=== PATIENT | male | born 1950 | race Two or more races ===

== ENCOUNTER → 2016-06-21 | Day surgery (SDC) | payer OTHER ==
[2016-06-18 13:00] LABS: Urine RBC None Seen /hpf (0 - 3)
[2016-06-18 13:11] LABS: Basophils # (auto) 0 uL; Basophils % (auto) 0.4 % (0.0-2.0); Eosinophils # (auto) 0.1 uL; Eosinophils % (auto) 1.8 % (0.0-7.0); Hemoglobin 14.7 g/dL (13.5-17.5); Lymphocytes # (auto) 2.6 uL; Lymphocytes % (auto) 30.5 % (10.0-50.0); Mean Corpuscular Hemoglobin 30.8 pg (28.0-32.0); Mean Corpuscular Hgb Conc. 33.5 g/dL (32.0-36.0); Mean Corpuscular Volume 92.2 fL (80.0-100.0); Mean Platelet Volume 8.1 fL (7.4-10.4); Monocytes # (auto) 0.8 uL; Monocytes % (auto) 9.3 % (0.0-12.0); Neutrophils # (auto) 4.9 uL; Platelet Count (auto) 231 10^3/uL (140-450); Red Cell Distribution Width 12.9 % (11.6-16.0); White Blood Cell 8.4 10^3/uL (4.4-10.8)
[2016-06-18 13:27] LABS: Urine Bilirubin Negative (Negative); Urine Blood Negative /uL (Negative); Urine Color Yellow (Yellow); Urine Glucose Normal (Normal); Urine Ketone Negative (Negative); Urine Mucus FEW (None Seen); Urine Nitrite Negative (Negative); Urine Squamous Epithelial Cell FEW /hpf (<5); Urine Urobilinogen Normal (Negative)
[2016-06-18 13:28] LABS: INR 1.05 (0.9-1.15); Partial Thromboplastin Time 27.5 sec (22.64-33.71); Prothrombin Time 10.8 sec (9.37-12.3)
[2016-06-18 13:33] LABS: BUN/Creatinine Ratio 19.3; Calcium 8.8 mg/dL (8.5-10.1); Potassium 3.9 mmol/L (3.5-5.1)
[~2016-06-21] VITALS: Ht 177.8 cm; Wt 80.7 kg
[~2016-06-21] MED LIST: HYDROmorphone HCL 2 MG/ML VL ONE; MIDAZOLAM HCL 1MG/1ML-2 ML VIAL ONE; ONDANSETRON HCL 4 MG/2 ML VIAL IV ONE; PROPOFOL 10 MG/ML 20 ML IV ONE; ROCURONIUM 10MG/ML 10ML VIAL IV ONE; ceFAZolin 1GM/50ML D5W 50 ML IV ONE; ePHEDrine SULFATE 50 MG/ML AMP IV PRN; fentaNYL CITRATE 100 MCG/2 ML VL ONE; hydrALAZINE HCL 20 MG/ML VL IV PRN
[2016-06-21] MEDS: HYDROmorphone HCL 2 MG/ML VL IV PRN ×2 (16:18→16:28)
[2016-06-21 17:47] VITALS: BP 132/84
== END | disposition home or self-care (01) ==
LOC: SUR 10:37
PROVIDERS: ATTEND Urology
DX: D49.4 Neoplasm of unspecified behavior of bladder (principal)
CPT/HCPCS: 36415; 52240; 55700; 80048; 81001; 85025; 85049; 85610; 85730; 87086; J0690; J1170; J2250; J2704; J3010

== ENCOUNTER 2016-11-29 08:38 | Day surgery (SDC) | payer OTHER ==
[2016-11-23 15:21] LABS: Basophils # (auto) 0 uL; Basophils % (auto) 0.3 % (0.0-2.0); CONDITION Y; Eosinophils # (auto) 0.1 uL; Hemoglobin 14.5 g/dL (13.5-17.5); Lymphocytes # (auto) 2.6 uL; Lymphocytes % (auto) 36.6 % (10.0-50.0); Mean Corpuscular Hemoglobin 31.9 pg (28.0-32.0); Mean Corpuscular Hgb Conc. 34.5 g/dL (32.0-36.0); Mean Corpuscular Volume 92.3 fL (80.0-100.0); Mean Platelet Volume 8.3 fL (7.4-10.4); Monocytes # (auto) 0.7 uL; Monocytes % (auto) 9.5 % (0.0-12.0); Neutrophils # (auto) 3.6 uL; Neutrophils % (auto) 51.6 % (37.0-80.0); Platelet Count (auto) 214 10^3/uL (140-450); Red Cell Distribution Width 13.3 % (11.6-16.0)
[2016-11-23 15:25] LABS: Urine Bilirubin Negative (Negative); Urine Blood Negative /uL (Negative); Urine Color Yellow (Yellow); Urine Glucose Normal (Normal); Urine Ketone TRACE (Negative); Urine Mucus FEW (None Seen); Urine Nitrite Negative (Negative); Urine RBC 3 /hpf (0 - 3); Urine Urobilinogen Normal (Negative)
[2016-11-23 15:41] LABS: Albumin 3.9 g/dL (3.4-5.0); BUN/Creatinine Ratio 18.4; Bilirubin, Total 0.7 mg/dL (0.2-1.0); Calcium 8.6 mg/dL (8.5-10.1); Potassium 4.3 mmol/L (3.5-5.1); Total Protein 7.6 g/dL (6.4-8.2)
[2016-11-23 15:51] LABS: INR 1.02 (0.9-1.15); Partial Thromboplastin Time 28.8 sec (22.64-33.71); Prothrombin Time 11.1 sec (9.37-12.3)
[~2016-11-29] VITALS: Ht 177.8 cm; Wt 76.2 kg
[2016-11-29] MEDS ORDERED: ceFAZolin 1GM/50ML D5W 50 ML IV ONE (09:08)
[2016-11-29] MEDS ORDERED: MINERAL OIL LIGHT TOPICAL 25 ML TOP ONE (11:28)
[2016-11-29] MEDS ORDERED: HYDROmorphone HCL 2 MG/ML VL ONE (12:00)
[2016-11-29] MEDS ORDERED: ONDANSETRON HCL 4 MG/2 ML VIAL ONE (12:06)
[2016-11-29] MEDS ORDERED: DEXAMETHASONE SOD PHOS 10MG/1ML VIAL INJ ONE (12:07)
[2016-11-29] MEDS ORDERED: PROPOFOL 10 MG/ML 20 ML IV ONE (12:27)
[2016-11-29] MEDS ORDERED: ONDANSETRON HCL 4 MG/2 ML VIAL IV ONE (13:30)
[2016-11-29] MEDS ORDERED: METOCLOPRAMIDE HCL 5MG/ml INJ 2ml VIAL IV ONE (13:30)
[2016-11-29] MEDS ORDERED: MIDAZOLAM HCL 1MG/1ML-2 ML VIAL IV PRN (13:30)
[2016-11-29] MEDS ORDERED: FUROSEMIDE 20 MG/2 ML VIAL ONE (14:15)
[2016-11-29] MEDS: HYDROmorphone HCL 2 MG/ML VL IV PRN ×3 (14:30→14:50)
[2016-11-29 15:15] VITALS: BP 135/93
[2016-11-29] MEDS ORDERED: FUROSEMIDE 20 MG/2 ML VIAL IV ONE (17:00)
== END 2016-11-29 15:15 | disposition home or self-care (01) ==
LOC: SUR 08:38
PROVIDERS: ATTEND Urology
DX: C61 Malignant neoplasm of prostate (principal); Z90.49 Acquired absence of other specified parts of digestive tract
CPT/HCPCS: 36415; 55873; 80053; 81001; 85025; 85610; 85730; 87086; C2618; J0690; J1100; J1170; J1940; J2405; J2704